=== PATIENT | female | born 1990 | race Caucasian/White ===

== ENCOUNTER 2017-04-29 15:16 | Emergency (ER) | payer OTHER ==
[~2017-04-29] VITALS: Ht 165.1 cm; Wt 140.2 kg
[~2017-04-29 15:16] MED LIST: ACETAZOLAMID250 MG OR; ACETTAB3 OR; AMOXICILLIN500 MG OR; BACTRIM DS1 TAB PO; CIPRO500 MG OR; FIORICET OR; FISH OIL1000 MG PO; KEPPRA XR500 MG OR; LORTAB 5 OR; NAPROSYN500 MG OR; NO CURRENT MEDS; NO HOME MEDS; PERCOCET 5/321 COMBO PO; PHENYTOIN EX100 MG; PHENYTOIN EX100 MG PO; PRENATA4 OR; PRENATA5 PO; PRENATAL1 TA1 PO; PROTONIX40 MG OR; TYLENOL # 31 TAB PO; TYLENOL ARTH650 MG OR; ULTRAM50 MG OR; ZOFRAN ODT4 MG PO
[2017-04-29] MEDS ORDERED: TORADOL PO (15:33)
[2017-04-29] MEDS ORDERED: AMOXICILLIN500 MG PO (15:33)
[2017-04-29 15:40] VITALS: BP 137/82
== END 2017-04-29 15:40 | disposition home or self-care (01) | DRG 159 ==
LOC: ED 15:16
DX: K04.7 Periapical abscess without sinus (principal); F17.210 Nicotine dependence, cigarettes, uncomplicated

== ENCOUNTER 2017-11-18 21:52 | Emergency (ER) | payer SELFPAY ==
[~2017-11-18] VITALS: Ht 165.1 cm; Wt 139.8 kg
[~2017-11-18 21:52] MED LIST changes: +AMOXICILLIN500 MG PO; +TORADOL PO; +XANAX0.5 MG PO
[2017-11-18 22:53] LABS: HEMATOCRIT 46.1 % (37.0-47.0); HEMOGLOBIN 15.7 g/dl (12.0-16.0); IMMATURE GRANULOCYTES 0.2 % (0.0-5.0); MEAN CELL VOLUME 95.1 fL CALC (80.0-100.0); MEAN CORPUSCULAR HGB 32.4 pG CALC (26.0-32.0); MEAN CORPUSCULAR HGB CONC 34.1 g/L CALC (32.0-36.0); NEUT# 7.55 thou/uL (2.00-7.15); RED BLOOD COUNT 4.85 mill/uL (4.20-5.60); RED CELL DISTRI WIDTH 12.5 % (11.5-15.5)
[2017-11-18 22:53] LABS: URINE BILIRUBIN - DIPSTICK NEGATIVE (NEGATIVE); URINE BLOOD DIPSTICK NEGATIVE (NEGATIVE); URINE COLOR YELLOW; URINE GLUCOSE - DIPSTICK NEGATIVE (NEGATIVE); URINE KETONE NEGATIVE (NEGATIVE); URINE LEUK ESTERASE NEGATIVE (NEGATIVE); URINE NITRITE - DIPSTICK NEGATIVE (Negative); URINE PROTEIN - DIPSTICK NEGATIVE (NEG-TRACE); URINE SPECIFIC GRAVITY >=1.030; URINE UROBILINOGEN - DIPSTICK 0.2 E.U./dL (0.2)
[2017-11-18 22:54] LABS: URINE CLARITY CLOUDY
[2017-11-18 23:04] LABS: ALBUMIN 4.5 g/dL (3.2-5.0); ALKALINE PHOSPHATASE 61 u/l (38-126); AMYLASE 43 u/l (30-110); ANION GAP 16 (6-22 (CALC)); BILIRUBIN, TOTAL 0.4 mg/dL (0.0-1.4); BUN 12 mg/dL (7-17); BUN/CREATININE RATIO 20 (12-20 (CALC)); CARBON DIOXIDE 25 mmol/l (22-30); CHLORIDE 103 mmol/l (95-108); CREATININE 0.6 mg/dL (0.5-1.0); GFR > 60 ML/MIN (>=60 (CALC)); GFR FOR AFR.AMER. > 60 ML/MIN (>=60 (CALC)); LIPASE 78 u/l (23-300); POTASSIUM 4.3 mmol/l (3.5-5.1); SODIUM 140 mmol/l (137-146); TOTAL PROTEIN 7.8 g/dL (6.3-8.2)
[2017-11-18 23:07] LABS: SGOT/AST 66 u/l (14-36)
[2017-11-18 23:08] LABS: URINE BACTERIA FEW hpf; URINE MUCUS MODERATE hpf (NONE-FEW); URINE RBC 0-2 RBC/hpf (0-5); URINE SQUAMOUS EPITHELIAL CELL MANY EPI/hpf (0-FEW); URINE WBC 0-2 WBC/hpf (0-5)
[2017-11-18] MEDS ORDERED: PROTONIX40 MG PO (23:32)
[2017-11-19 00:12] VITALS: BP 126/76
== END 2017-11-19 00:12 | disposition home or self-care (01) | DRG 392 ==
LOC: ED 21:52
PROVIDERS: Family Medicine
DX: K29.70 Gastritis, unspecified, without bleeding (principal); K59.00 Constipation, unspecified; J02.9 Acute pharyngitis, unspecified; F17.200 Nicotine dependence, unspecified, uncomplicated

== ENCOUNTER 2018-01-24 00:21 | Emergency (ER) | payer MEDICAID ==
[~2018-01-24] VITALS: Ht 165.1 cm; Wt 136.0 kg
[~2018-01-24 00:21] MED LIST changes: +PROTONIX40 MG PO
[2018-01-24] MEDS ORDERED: GENTAMICIN0.3 % OD (01:01)
[2018-01-24 01:12] VITALS: BP 127/62
== END 2018-01-24 01:12 | disposition home or self-care (01) ==
LOC: ED 00:21
DX: H10.31 Unspecified acute conjunctivitis, right eye (principal); H57.11 Ocular pain, right eye

== ENCOUNTER 2018-02-09 20:01 | Emergency (ER) | payer OTHER ==
[~2018-02-09] VITALS: Ht 165.1 cm; Wt 136.0 kg
[~2018-02-09 20:01] MED LIST changes: +GENTAMICIN0.3 % OD
[2018-02-09 22:05] VITALS: BP 110/68
== END 2018-02-09 22:05 | disposition home or self-care (01) ==
LOC: ED 20:01
DX: S93.602A Unspecified sprain of left foot, initial encounter (principal); X50.1XXA Overexertion from prolonged static or awkward postures, initial encounter; Y93.01 Activity, walking, marching and hiking; Y92.89 Other specified places as the place of occurrence of the external cause

== ENCOUNTER 2018-03-31 23:04 | Emergency (ER) | payer SELFPAY ==
[~2018-03-31] VITALS: Ht 165.1 cm; Wt 136.8 kg
[2018-04-01] MEDS ORDERED: IBUPROFEN600 MG PO (00:09)
[2018-04-01 00:20] VITALS: BP 130/78
== END 2018-04-01 00:30 | disposition home or self-care (01) | DRG 566 ==
LOC: ED 23:04
DX: M77.31 Calcaneal spur, right foot (principal); M72.2 Plantar fascial fibromatosis; F17.210 Nicotine dependence, cigarettes, uncomplicated

== ENCOUNTER 2018-04-15 23:56 | Emergency (ER) | payer SELFPAY ==
[~2018-04-15] VITALS: Ht 165.1 cm; Wt 136.0 kg
[~2018-04-15 23:56] MED LIST changes: +IBUPROFEN600 MG PO
[2018-04-16] MEDS ORDERED: LEVAQUIN750 MG PO (01:48)
[2018-04-16 02:01] VITALS: BP 124/73
== END 2018-04-16 02:09 | disposition home or self-care (01) | DRG 869 ==
LOC: ED 23:56
DX: B37.9 Candidiasis, unspecified (principal); F17.210 Nicotine dependence, cigarettes, uncomplicated

== ENCOUNTER 2018-04-20 22:53 | Emergency (ER) | payer SELFPAY ==
[~2018-04-20] VITALS: Ht 165.1 cm; Wt 136.0 kg
[~2018-04-20 22:53] MED LIST changes: +LEVAQUIN750 MG PO
[2018-04-21 00:25] VITALS: BP 110/62
== END 2018-04-21 00:25 | disposition home or self-care (01) | DRG 869 ==
LOC: ED 22:53
DX: B37.9 Candidiasis, unspecified (principal); F17.210 Nicotine dependence, cigarettes, uncomplicated

== ENCOUNTER 2018-04-24 23:49 | Emergency (ER) | payer SELFPAY ==
[~2018-04-24] VITALS: Ht 165.1 cm; Wt 136.0 kg
[2018-04-25 00:25] LABS: HEMATOCRIT 42.7 % (37.0-47.0); HEMOGLOBIN 14.4 g/dl (12.0-16.0); IMMATURE GRANULOCYTES 0.2 % (0.0-5.0); MEAN CELL VOLUME 93.2 fL CALC (80.0-100.0); MEAN CORPUSCULAR HGB 31.4 pG CALC (26.0-32.0); MEAN CORPUSCULAR HGB CONC 33.7 g/L CALC (32.0-36.0); NEUT# 8.23 thou/uL (2.00-7.15); RED BLOOD COUNT 4.58 mill/uL (4.20-5.60); RED CELL DISTRI WIDTH 12.7 % (11.5-15.5)
--- NOTE | 2018-04-25 00:55 | NUR ---
BREATHING TREATMENT GIVEN USING A MOUTH PEICE. BREATHING TECH. FOR GOOD DEPOSITION TO THE LUNGS.
[2018-04-25] MEDS ORDERED: DOXYCYCL HYC100 MG PO (01:44)
[2018-04-25] MEDS ORDERED: TESSALON PERLE100 MG PO (01:44)
[2018-04-25 02:02] VITALS: BP 132/72
== END 2018-04-25 02:02 | disposition home or self-care (01) | DRG 203 ==
LOC: ED 23:49
PROVIDERS: Family Medicine
DX: J20.9 Acute bronchitis, unspecified (principal); F17.200 Nicotine dependence, unspecified, uncomplicated

== ENCOUNTER 2018-06-10 16:15 | Emergency (ER) | payer OTHER ==
[~2018-06-10] VITALS: Ht 165.1 cm; Wt 136.4 kg
[~2018-06-10 16:15] MED LIST changes: +DOXYCYCL HYC100 MG PO; +TESSALON PERLE100 MG PO
[2018-06-10] MEDS ORDERED: CYCLOBENZAPRINE5 MG PO (16:42)
[2018-06-10] MEDS ORDERED: MOTRIN400 MG PO (16:42)
[2018-06-10 16:55] VITALS: BP 123/83
== END 2018-06-10 16:55 | disposition home or self-care (01) | DRG 552 ==
LOC: ED 16:15
DX: M62.830 Muscle spasm of back (principal); F17.210 Nicotine dependence, cigarettes, uncomplicated

== ENCOUNTER 2018-06-17 07:16 | Emergency (ER) | payer OTHER ==
[~2018-06-17] VITALS: Ht 165.1 cm; Wt 100.0 kg
[~2018-06-17 07:16] MED LIST changes: +CYCLOBENZAPRINE5 MG PO; +MOTRIN400 MG PO
[2018-06-17 08:08] LABS: HEMATOCRIT 37.6 % (37.0-47.0); HEMOGLOBIN 12.7 g/dl (12.0-16.0); IMMATURE GRANULOCYTES 0.3 % (0.0-5.0); MEAN CELL VOLUME 94.5 fL CALC (80.0-100.0); MEAN CORPUSCULAR HGB 31.9 pG CALC (26.0-32.0); MEAN CORPUSCULAR HGB CONC 33.8 g/L CALC (32.0-36.0); NEUT# 5.99 thou/uL (2.00-7.15); RED BLOOD COUNT 3.98 mill/uL (4.20-5.60); RED CELL DISTRI WIDTH 12.8 % (11.5-15.5)
[2018-06-17 08:28] LABS: ALBUMIN 3.6 g/dL (3.2-5.0); ALKALINE PHOSPHATASE 54 u/l (38-126); ANION GAP 10 (6-22 (CALC)); BILIRUBIN, TOTAL 0.4 mg/dL (0.0-1.4); BUN 12 mg/dL (7-17); BUN/CREATININE RATIO 19 (12-20 (CALC)); CARBON DIOXIDE 26 mmol/l (22-30); CHLORIDE 108 mmol/l (95-108); CREATININE 0.6 mg/dL (0.5-1.0); GFR > 60 ML/MIN (>=60 (CALC)); GFR FOR AFR.AMER. > 60 ML/MIN (>=60 (CALC)); POTASSIUM 4.5 mmol/l (3.5-5.1); SGOT/AST 23 u/l (14-36); SODIUM 139 mmol/l (137-146); TOTAL PROTEIN 6.3 g/dL (6.3-8.2)
[2018-06-17 10:01] LABS: URINE BILIRUBIN - DIPSTICK NEGATIVE (NEGATIVE); URINE BLOOD DIPSTICK LARGE (NEGATIVE); URINE COLOR YELLOW; URINE GLUCOSE - DIPSTICK NEGATIVE (NEGATIVE); URINE KETONE TRACE mg/dL (NEGATIVE); URINE LEUK ESTERASE NEGATIVE (NEGATIVE); URINE NITRITE - DIPSTICK NEGATIVE (Negative); URINE PROTEIN - DIPSTICK NEGATIVE (NEG-TRACE); URINE SPECIFIC GRAVITY 1.025; URINE UROBILINOGEN - DIPSTICK 0.2 E.U./dL (0.2)
[2018-06-17 10:06] LABS: BARBITURATES NEGATIVE (NEGATIVE); COCAINE NEGATIVE (NEGATIVE); METHADONE NEGATIVE (NEGATIVE); OXCYCODONE NEGATIVE (NEGATIVE); TETRAHYDROCANNABIONOL NEGATIVE (NEGATIVE); TRICYLIC ANTIDEPRESSANTS NEGATIVE (NEGATIVE)
[2018-06-17] MEDS ORDERED: BENTYL10 MG PO (10:34)
[2018-06-17] MEDS ORDERED: MIRALAX3350 N1 PO (10:34)
[2018-06-17 11:12] VITALS: BP 153/79
== END 2018-06-17 11:20 | disposition home or self-care (01) | DRG 392 ==
LOC: ED 07:16
PROVIDERS: Emergency Medicine
DX: K59.00 Constipation, unspecified (principal); R82.5 Elevated urine levels of drugs, medicaments and biological substances; F17.210 Nicotine dependence, cigarettes, uncomplicated

== ENCOUNTER 2018-10-11 14:55 | Emergency (ER) | payer BC ==
[~2018-10-11] VITALS: Ht 165.1 cm; Wt 135.4 kg
[~2018-10-11 14:55] MED LIST changes: +BENTYL10 MG PO; +MIRALAX3350 N1 PO
[2018-10-11] MEDS ORDERED: PROTONIX40 M2 PO (15:27)
[2018-10-11] MEDS ORDERED: LORTAB 5/3255 MG PO (15:27)
[2018-10-11] MEDS ORDERED: XANAX0.5 MG PO (15:27)
[2018-10-11] MEDS ORDERED: CREON24000 UNT PO (15:27)
[2018-10-11 16:26] LABS: URINE BILIRUBIN - DIPSTICK NEGATIVE (NEGATIVE); URINE BLOOD DIPSTICK MODERATE (NEGATIVE); URINE COLOR YELLOW; URINE GLUCOSE - DIPSTICK NEGATIVE (NEGATIVE); URINE KETONE NEGATIVE (NEGATIVE); URINE LEUK ESTERASE NEGATIVE (NEGATIVE); URINE NITRITE - DIPSTICK NEGATIVE (Negative); URINE PH 6.5 (4.5-8.0); URINE PROTEIN - DIPSTICK NEGATIVE (NEG-TRACE); URINE UROBILINOGEN - DIPSTICK 0.2 E.U./dL (0.2)
[2018-10-11 16:30] LABS: BARBITURATES NEGATIVE (NEGATIVE); COCAINE NEGATIVE (NEGATIVE); METHADONE NEGATIVE (NEGATIVE); OXCYCODONE POSITIVE (NEGATIVE); TETRAHYDROCANNABIONOL NEGATIVE (NEGATIVE); TRICYLIC ANTIDEPRESSANTS NEGATIVE (NEGATIVE)
[2018-10-11 16:32] LABS: URINE SQUAMOUS EPITHELIAL CELL FEW EPI/hpf (0-FEW); URINE WBC 0-2 WBC/hpf (0-5)
[2018-10-11] MEDS ORDERED: MEDDOSEPAK PO (17:31)
[2018-10-11] MEDS ORDERED: FLEXERIL PO (17:31)
[2018-10-11] MEDS ORDERED: DICLOFENAC50 MG PO (17:31)
[2018-10-11 17:38] VITALS: BP 112/65
== END 2018-10-11 18:09 | disposition home or self-care (01) | DRG 552 ==
LOC: ED 14:55
PROVIDERS: Emergency Medicine
DX: M51.9 Unspecified thoracic, thoracolumbar and lumbosacral intervertebral disc disorder (principal); K86.1 Other chronic pancreatitis; F17.200 Nicotine dependence, unspecified, uncomplicated

== ENCOUNTER 2018-10-25 18:24 | Emergency (ER) | payer BC ==
[~2018-10-25] VITALS: Ht 165.1 cm; Wt 131.0 kg
[~2018-10-25 18:24] MED LIST changes: +CREON24000 UNT PO; +DICLOFENAC50 MG PO; +FLEXERIL PO; +LORTAB 5/3255 MG PO; +MEDDOSEPAK PO; +PROTONIX40 M2 PO
[2018-10-25] MEDS ORDERED: CEPHALEXIN500 M1 PO (18:45)
[2018-10-25] MEDS ORDERED: BACTRIM DS1 TAB PO (18:45)
[2018-10-25 19:36] VITALS: BP 128/76
== END 2018-10-25 19:44 | disposition home or self-care (01) | DRG 581 ==
LOC: ED 18:24
PROC: 0U9M0ZZ Drainage of Vulva, Open Approach (ICD-10-PCS; principal; 2018-10-25)
DX: L02.215 Cutaneous abscess of perineum (principal); F17.210 Nicotine dependence, cigarettes, uncomplicated

== ENCOUNTER 2018-12-22 22:04 | Emergency (ER) | payer BC ==
[~2018-12-22] VITALS: Ht 165.1 cm; Wt 132.0 kg
[~2018-12-22 22:04] MED LIST changes: +CEPHALEXIN500 M1 PO
[2018-12-22] MEDS ORDERED: GABAPENTIN800 MG PO (22:21)
[2018-12-22] MEDS ORDERED: GUAIASORB DM1 ML PO (23:35)
[2018-12-22] MEDS ORDERED: VENTOLIN HF1 IN (23:35)
[2018-12-23 00:08] VITALS: BP 134/76
== END 2018-12-23 00:08 | disposition home or self-care (01) | DRG 203 ==
LOC: ED 22:04
DX: J40 Bronchitis, not specified as acute or chronic (principal)

== ENCOUNTER 2019-02-15 | Emergency (ER) | payer OTHER ==
[~2019-02-15] MED LIST changes: +GABAPENTIN800 MG PO; +GUAIASORB DM1 ML PO; +VENTOLIN HF1 IN
[2019-02-15 21:31] LABS: IMMATURE GRANULOCYTES 0.3 % (0.0-5.0); MEAN CELL VOLUME 93.2 fL CALC (80.0-100.0); MEAN CORPUSCULAR HGB 31.3 pG CALC (26.0-32.0); MEAN CORPUSCULAR HGB CONC 33.6 g/L CALC (32.0-36.0); NEUT# 10.2 thou/uL (2.00-7.15); RED BLOOD COUNT 4.85 mill/uL (4.20-5.60); RED CELL DISTRI WIDTH 13.2 % (11.5-15.5)
[2019-02-15 21:33] LABS: HEMATOCRIT 45.2 % (37.0-47.0); HEMOGLOBIN 15.2 g/dl (12.0-16.0)
[2019-02-15 21:42] LABS: ALKALINE PHOSPHATASE 52 u/l (38-126); BUN 11 mg/dL (7-17); BUN/CREATININE RATIO 22 (12-20 (CALC)); CARBON DIOXIDE 24 mmol/l (22-30); CHLORIDE 105 mmol/l (95-108); CREATININE 0.5 mg/dL (0.5-1.0); GFR > 60 ML/MIN (>=60 (CALC)); GFR FOR AFR.AMER. > 60 ML/MIN (>=60 (CALC)); LIPASE 104 u/l (23-300); SGOT/AST 40 u/l (14-36); SODIUM 139 mmol/l (137-146)
[2019-02-15 21:45] LABS: ALBUMIN 4.5 g/dL (3.2-5.0); ANION GAP 14 (6-22 (CALC)); BILIRUBIN, TOTAL 0.6 mg/dL (0.0-1.4); POTASSIUM 3.5 mmol/l (3.5-5.1)
[2019-02-15 23:14] LABS: URINE BILIRUBIN - DIPSTICK NEGATIVE (NEGATIVE); URINE BLOOD DIPSTICK NEGATIVE (NEGATIVE); URINE CLARITY CLEAR; URINE COLOR YELLOW; URINE GLUCOSE - DIPSTICK NEGATIVE (NEGATIVE); URINE KETONE NEGATIVE (NEGATIVE); URINE LEUK ESTERASE NEGATIVE (Negative); URINE NITRITE - DIPSTICK NEGATIVE (Negative); URINE PROTEIN - DIPSTICK NEGATIVE (NEG-TRACE); URINE UROBILINOGEN - DIPSTICK 0.2 E.U./dL (0.2)
[2019-02-15] MEDS ORDERED: HYDROCO/APAP1 TA9 PO (23:19)
== END 2019-02-15 23:44 | disposition home or self-care (01) | DRG 605 ==
DX: S30.811A Abrasion of abdominal wall, initial encounter (principal); F17.210 Nicotine dependence, cigarettes, uncomplicated; V43.53XA Car driver injured in collision with pick-up truck in traffic accident, initial encounter
CPT/HCPCS: Q9967

== ENCOUNTER 2019-03-22 | Emergency (ER) | payer MEDICAID ==
[~2019-03-22] MED LIST changes: +HYDROCO/APAP1 TA9 PO
[2019-03-22 21:32] LABS: IMMATURE GRANULOCYTES 0.3 % (0.0-5.0); MEAN CELL VOLUME 95.3 fL CALC (80.0-100.0); MEAN CORPUSCULAR HGB 31.6 pG CALC (26.0-32.0); MEAN CORPUSCULAR HGB CONC 33.2 g/L CALC (32.0-36.0); NEUT# 10.95 thou/uL (2.00-7.15); RED BLOOD COUNT 4.02 mill/uL (4.20-5.60); RED CELL DISTRI WIDTH 13.2 % (11.5-15.5)
[2019-03-22 21:33] LABS: HEMATOCRIT 38.3 % (37.0-47.0); HEMOGLOBIN 12.7 g/dl (12.0-16.0)
[2019-03-22] MEDS ORDERED: VENTOLIN HFA IN (22:26)
[2019-03-22] MEDS ORDERED: PREDNISONE50 MG PO (22:26)
[2019-03-22] MEDS ORDERED: CLARITHROMYC500 MG PO (22:26)
== END 2019-03-22 23:07 | disposition home or self-care (01) ==
PROVIDERS: Family Medicine
DX: J40 Bronchitis, not specified as acute or chronic (principal); F17.210 Nicotine dependence, cigarettes, uncomplicated

== ENCOUNTER 2019-05-07 | Emergency (ER) | payer MEDICAID ==
[~2019-05-07] MED LIST changes: +CLARITHROMYC500 MG PO; +PREDNISONE50 MG PO; +VENTOLIN HFA IN
[2019-05-07 09:34] LABS: HEMATOCRIT 40.5 % (37.0-47.0); HEMOGLOBIN 13.6 g/dl (12.0-16.0); IMMATURE GRANULOCYTES 0.3 % (0.0-5.0); MEAN CELL VOLUME 94.6 fL CALC (80.0-100.0); MEAN CORPUSCULAR HGB 31.8 pG CALC (26.0-32.0); MEAN CORPUSCULAR HGB CONC 33.6 g/dL CAL (32.0-36.0); NEUT# 5.86 thou/uL (2.00-7.15); RED BLOOD COUNT 4.28 mill/uL (4.20-5.60)
[2019-05-07 09:47] LABS: ALBUMIN 4.1 g/dL (3.2-5.0); ALKALINE PHOSPHATASE 50 u/l (38-126); ANION GAP 11 (6-22 (CALC)); BILIRUBIN, TOTAL 0.5 mg/dL (0.0-1.4); BUN 9 mg/dL (7-17); BUN/CREATININE RATIO 15 (12-20 (CALC)); CARBON DIOXIDE 24 mmol/l (22-30); CHLORIDE 108 mmol/l (95-108); CREATININE 0.6 mg/dL (0.5-1.0); GFR > 60 ML/MIN (>=60 (CALC)); GFR FOR AFR.AMER. > 60 ML/MIN (>=60 (CALC)); LIPASE 75 u/l (23-300); SGOT/AST 27 u/l (14-36); SODIUM 140 mmol/l (137-146); TOTAL PROTEIN 7.2 g/dL (6.3-8.2)
[2019-05-07 10:47] LABS: URINE BILIRUBIN - DIPSTICK NEGATIVE (NEGATIVE); URINE BLOOD DIPSTICK MODERATE (NEGATIVE); URINE COLOR YELLOW; URINE GLUCOSE - DIPSTICK NEGATIVE (NEGATIVE); URINE KETONE NEGATIVE (NEGATIVE); URINE LEUK ESTERASE NEGATIVE (NEGATIVE); URINE NITRITE - DIPSTICK NEGATIVE (Negative); URINE PROTEIN - DIPSTICK NEGATIVE (NEG-TRACE); URINE SPECIFIC GRAVITY >=1.030; URINE UROBILINOGEN - DIPSTICK 0.2 E.U./dL (0.2)
[2019-05-07 10:57] LABS: URINE CALCIUM OXALATE CRYSTALS MANY lpf; URINE SQUAMOUS EPITHELIAL CELL FEW EPI/hpf (0-FEW)
[2019-05-07] MEDS ORDERED: MOTRIN400 MG PO ×2 (11:06)
[2019-05-07] MEDS ORDERED: CHERATUSSIN PO (13:10)
[2019-05-07] MEDS ORDERED: ALBUTEROL SUL0.083 % IN (13:10)
== END 2019-05-07 13:22 | disposition home or self-care (01) ==
PROVIDERS: Family Medicine
DX: R10.12 Left upper quadrant pain (principal); R31.9 Hematuria, unspecified; R00.1 Bradycardia, unspecified; T40.2X5A Adverse effect of other opioids, initial encounter; R05 Cough; F17.200 Nicotine dependence, unspecified, uncomplicated

== ENCOUNTER 2019-08-09 23:40 | Emergency (ER) | payer MEDICAID ==
[~2019-08-09] VITALS: Ht 165.1 cm; Wt 122.0 kg
[~2019-08-09 23:40] MED LIST changes: +ALBUTEROL SUL0.083 % IN; +CHERATUSSIN PO
[2019-08-10 00:45] VITALS: BP 146/88
== END 2019-08-10 00:45 | disposition home or self-care (01) ==
LOC: ED 23:40
DX: S20.361A Insect bite (nonvenomous) of right front wall of thorax, initial encounter (principal); F17.210 Nicotine dependence, cigarettes, uncomplicated; W57.XXXA Bitten or stung by nonvenomous insect and other nonvenomous arthropods, initial encounter

== ENCOUNTER 2020-01-01 01:32 | Emergency (ER) | payer MEDICAID ==
[~2020-01-01] VITALS: Ht 165.1 cm; Wt 118.0 kg
[2020-01-01] MEDS ORDERED: STERAPRED DS10 MG PO (01:54)
[2020-01-01 02:42] VITALS: BP 134/59
== END 2020-01-01 02:42 | disposition home or self-care (01) ==
LOC: ED 01:32
DX: L25.9 Unspecified contact dermatitis, unspecified cause (principal); F17.200 Nicotine dependence, unspecified, uncomplicated

== ENCOUNTER 2020-04-29 19:47 | Emergency (ER) | payer MEDICAID ==
[~2020-04-29] VITALS: Ht 165.1 cm; Wt 113.0 kg
[~2020-04-29 19:47] MED LIST changes: +STERAPRED DS10 MG PO
[2020-04-29 20:44] LABS: HEMOGLOBIN 14.1 g/dl (12.0-16.0); IMMATURE GRANULOCYTES 0.3 % (0.0-5.0); MEAN CELL VOLUME 93.4 fL CALC (80.0-100.0); MEAN CORPUSCULAR HGB 32.1 pG CALC (26.0-32.0); MEAN CORPUSCULAR HGB CONC 34.4 g/dL CAL (32.0-36.0); NEUT# 10.6 thou/uL (2.00-7.15); RED BLOOD COUNT 4.39 mill/uL (4.20-5.60); RED CELL DISTRI WIDTH 11.9 % (11.5-15.5)
[2020-04-29 21:04] LABS: ALBUMIN 4.2 g/dL (3.2-5.0); ALKALINE PHOSPHATASE 48 u/l (38-126); AMYLASE 38 u/l (30-110); ANION GAP 15 (6-22 (CALC)); BILIRUBIN, TOTAL 0.6 mg/dL (0.0-1.4); BUN 10 mg/dL (7-17); BUN/CREATININE RATIO 16 (12-20 (CALC)); CARBON DIOXIDE 24 mmol/l (22-30); CHLORIDE 98 mmol/l (95-108); CREATININE 0.6 mg/dL (0.5-1.0); GFR > 60 ML/MIN (>=60 (CALC)); GFR FOR AFR.AMER. > 60 ML/MIN (>=60 (CALC)); LIPASE 37 u/l (23-300); POTASSIUM 4.7 mmol/l (3.5-5.1); SGOT/AST 24 u/l (14-36); SODIUM 132 mmol/l (137-146); TOTAL PROTEIN 7.4 g/dL (6.3-8.2)
[2020-04-29 21:14] LABS: MYOGLOBIN 20 ng/mL (0 - 62)
[2020-04-29 22:52] LABS: URINE BILIRUBIN - DIPSTICK NEGATIVE (NEGATIVE); URINE BLOOD DIPSTICK LARGE (NEGATIVE); URINE COLOR YELLOW; URINE GLUCOSE - DIPSTICK NEGATIVE (NEGATIVE); URINE KETONE NEGATIVE (NEGATIVE); URINE LEUK ESTERASE NEGATIVE (NEGATIVE); URINE PROTEIN - DIPSTICK NEGATIVE (NEG-TRACE); URINE SPECIFIC GRAVITY <=1.005; URINE UROBILINOGEN - DIPSTICK 0.2 E.U./dL (0.2)
[2020-04-29 22:57] LABS: URINE NITRITE - DIPSTICK NEGATIVE (Negative)
[2020-04-29 22:58] LABS: URINE SQUAMOUS EPITHELIAL CELL FEW EPI/hpf (0-FEW); URINE WBC 0-2 WBC/hpf (0-5)
[2020-04-29] MEDS ORDERED: NAPROXEN500 MG PO (23:08)
[2020-04-29 23:26] VITALS: BP 144/97
== END 2020-04-29 23:27 | disposition home or self-care (01) ==
LOC: ED 19:47
PROVIDERS: Emergency Medicine
DX: F31.9 Bipolar disorder, unspecified (principal); R07.89 Other chest pain; F19.10 Other psychoactive substance abuse, uncomplicated; F41.9 Anxiety disorder, unspecified; F17.200 Nicotine dependence, unspecified, uncomplicated; Z20.822 Contact with and (suspected) exposure to COVID-19

== ENCOUNTER 2020-06-19 19:23 | Emergency (ER) | payer MEDICAID ==
[~2020-06-19] VITALS: Ht 12.7 cm; Wt 111.4 kg
[~2020-06-19 19:23] MED LIST changes: +NAPROXEN500 MG PO
[2020-06-19 20:25] LABS: HEMOGLOBIN 14.6 g/dl (12.0-16.0); IMMATURE GRANULOCYTES 0.3 % (0.0-5.0); MEAN CELL VOLUME 95.5 fL CALC (80.0-100.0); MEAN CORPUSCULAR HGB CONC 32.4 g/dL CAL (32.0-36.0); NEUT# 8.64 thou/uL (2.00-7.15); RED BLOOD COUNT 4.71 mill/uL (4.20-5.60); RED CELL DISTRI WIDTH 13.2 % (11.5-15.5)
[2020-06-19] MEDS ORDERED: CREON1 CAP PO (20:34)
[2020-06-19 20:44] LABS: ALBUMIN 4.5 g/dL (3.2-5.0); ALKALINE PHOSPHATASE 51 u/l (38-126); AMYLASE 75 u/l (30-110); ANION GAP 10 (6-22 (CALC)); BILIRUBIN, TOTAL 0.5 mg/dL (0.0-1.4); BUN 14 mg/dL (7-17); BUN/CREATININE RATIO 20 (12-20 (CALC)); CARBON DIOXIDE 27 mmol/l (22-30); CHLORIDE 104 mmol/l (95-108); CREATININE 0.7 mg/dL (0.5-1.0); GFR > 60 ML/MIN (>=60 (CALC)); GFR FOR AFR.AMER. > 60 ML/MIN (>=60 (CALC)); LIPASE 76 u/l (23-300); POTASSIUM 4.2 mmol/l (3.5-5.1); SGOT/AST 17 u/l (14-36); SODIUM 137 mmol/l (137-146); TOTAL PROTEIN 8.2 g/dL (6.3-8.2)
[2020-06-19 21:36] LABS: URINE BILIRUBIN - DIPSTICK NEGATIVE (NEGATIVE); URINE BLOOD DIPSTICK NEGATIVE (NEGATIVE); URINE COLOR YELLOW; URINE GLUCOSE - DIPSTICK NEGATIVE (NEGATIVE); URINE KETONE NEGATIVE (NEGATIVE); URINE LEUK ESTERASE NEGATIVE (NEGATIVE); URINE PROTEIN - DIPSTICK NEGATIVE (NEG-TRACE); URINE SPECIFIC GRAVITY >=1.030; URINE UROBILINOGEN - DIPSTICK 0.2 E.U./dL (0.2)
[2020-06-19 21:38] LABS: URINE NITRITE - DIPSTICK NEGATIVE (Negative)
[2020-06-19] MEDS ORDERED: PROTONIX40 MG PO (21:49)
[2020-06-19] MEDS ORDERED: ZOFRAN4 MG/TAB PO (21:49)
[2020-06-19] MEDS ORDERED: ULTRAM50 MG PO (21:50)
[2020-06-19 21:57] VITALS: BP 121/84
[2020-10-15] MEDS ORDERED: LYRICA75 MG PO (09:33)
== END 2020-06-19 22:00 | disposition home or self-care (01) ==
LOC: ED 19:23
DX: K52.9 Noninfective gastroenteritis and colitis, unspecified (principal); F14.10 Cocaine abuse, uncomplicated; F31.9 Bipolar disorder, unspecified; F41.9 Anxiety disorder, unspecified; F17.200 Nicotine dependence, unspecified, uncomplicated
CPT/HCPCS: S0164

== ENCOUNTER 2020-09-12 11:54 | Emergency (ER) | payer MEDICAID ==
[~2020-09-12 11:54] MED LIST changes: +CREON1 CAP PO; +ULTRAM50 MG PO; +ZOFRAN4 MG/TAB PO
[2020-09-12 15:00] VITALS: BP 138/88
[2020-10-15] MEDS ORDERED: LYRICA75 MG PO (09:33)
== END 2020-09-12 15:25 | disposition home or self-care (01) ==
LOC: ED 11:54
DX: K86.1 Other chronic pancreatitis (principal); E28.2 Polycystic ovarian syndrome; F41.9 Anxiety disorder, unspecified; F31.9 Bipolar disorder, unspecified; F17.200 Nicotine dependence, unspecified, uncomplicated; Z20.822 Contact with and (suspected) exposure to COVID-19; R10.822 Left upper quadrant rebound abdominal tenderness
CPT/HCPCS: Q9967; S0164

== ENCOUNTER 2021-01-15 18:11 | Emergency (ER) | payer MEDICAID ==
[~2021-01-15] VITALS: Ht 165.1 cm; Wt 102.0 kg
[~2021-01-15 18:11] MED LIST changes: +LYRICA75 MG PO
[2021-01-15 19:20] LABS: HEMATOCRIT 41.8 % (37.0-47.0); HEMOGLOBIN 14.2 g/dl (12.0-16.0); IMMATURE GRANULOCYTES 0.1 % (0.0-5.0); MEAN CELL VOLUME 96.1 fL CALC (80.0-100.0); MEAN CORPUSCULAR HGB 32.6 pG CALC (26.0-32.0); NEUT# 6.47 thou/uL (2.00-7.15); RED BLOOD COUNT 4.35 mill/uL (4.20-5.60); RED CELL DISTRI WIDTH 12.9 % (11.5-15.5); URINE BILIRUBIN - DIPSTICK NEGATIVE (NEGATIVE); URINE BLOOD DIPSTICK NEGATIVE (NEGATIVE); URINE COLOR YELLOW; URINE GLUCOSE - DIPSTICK NEGATIVE (NEGATIVE); URINE KETONE NEGATIVE (NEGATIVE); URINE LEUK ESTERASE NEGATIVE (NEGATIVE); URINE PH 6.5 (4.5-8.0); URINE PROTEIN - DIPSTICK NEGATIVE (NEG-TRACE); URINE UROBILINOGEN - DIPSTICK 0.2 E.U./dL (0.2)
[2021-01-15 19:22] LABS: URINE NITRITE - DIPSTICK NEGATIVE (Negative)
[2021-01-15 19:40] LABS: ALBUMIN 4.1 g/dL (3.2-5.0); ALKALINE PHOSPHATASE 50 u/l (38-126); ANION GAP 8 (6-22 (CALC)); BILIRUBIN, TOTAL 0.5 mg/dL (0.0-1.4); BUN 10 mg/dL (7-17); BUN/CREATININE RATIO 14 (12-20 (CALC)); CHLORIDE 102 mmol/l (95-108); CREATININE 0.7 mg/dL (0.5-1.0); GFR > 60 ML/MIN (>=60 (CALC)); GFR FOR AFR.AMER. > 60 ML/MIN (>=60 (CALC)); LIPASE 41 u/l (23-300); SGOT/AST 17 u/l (14-36); SODIUM 137 mmol/l (137-146); TOTAL PROTEIN 7.6 g/dL (6.3-8.2)
[2021-01-15 19:42] LABS: CARBON DIOXIDE 31 mmol/l (22-30)
[2021-01-15] MEDS ORDERED: PREVACID30 M3 PO (21:08)
[2021-01-15] MEDS ORDERED: ONDANSETRON4 MG PO (21:08)
[2021-01-15] MEDS ORDERED: BUSPIRONE5 MG PO (21:09)
[2021-01-15] MEDS ORDERED: ULTRAM50 M1 PO (21:10)
[2021-01-15 21:56] VITALS: BP 118/67
== END 2021-01-15 21:56 | disposition home or self-care (01) ==
LOC: ED 18:11
PROVIDERS: Family Medicine
DX: K86.1 Other chronic pancreatitis (principal); F11.10 Opioid abuse, uncomplicated; F41.9 Anxiety disorder, unspecified; F31.9 Bipolar disorder, unspecified; F17.210 Nicotine dependence, cigarettes, uncomplicated
CPT/HCPCS: Q9967; S0164

== ENCOUNTER 2021-10-14 09:31 | Emergency (ER) | payer MEDICAID ==
[~2021-10-14] VITALS: Ht 165.1 cm; Wt 90.0 kg
[2021-10-14] VITALS (16 sets, daily range): BP systolic 121–152; BP diastolic 77–101
[~2021-10-14 09:31] MED LIST changes: +BUSPIRONE5 MG PO; +ONDANSETRON4 MG PO; +PREVACID30 M3 PO; +ULTRAM50 M1 PO
[2021-10-14 10:30] LABS: HEMATOCRIT 37.2 % (37.0-47.0); HEMOGLOBIN 12.7 g/dl (12.0-16.0); IMMATURE GRANULOCYTES 0.1 % (0.0-5.0); MEAN CELL VOLUME 94.9 fL CALC (80.0-100.0); MEAN CORPUSCULAR HGB 32.4 pG CALC (26.0-32.0); MEAN CORPUSCULAR HGB CONC 34.1 g/dL CAL (32.0-36.0); NEUT# 7.69 thou/uL (2.00-7.15); RED BLOOD COUNT 3.92 mill/uL (4.20-5.60); RED CELL DISTRI WIDTH 12.9 % (11.5-15.5)
[2021-10-14 11:14] LABS: ALBUMIN 4.4 g/dL (3.2-5.0); ALKALINE PHOSPHATASE 55 u/l (38-126); ANION GAP 12 (6-22 (CALC)); BILIRUBIN, TOTAL 0.3 mg/dL (0.0-1.4); BUN 10 mg/dL (7-17); BUN/CREATININE RATIO 15 (12-20 (CALC)); CARBON DIOXIDE 29 mmol/l (22-30); CHLORIDE 105 mmol/l (95-108); CREATININE 0.7 mg/dL (0.5-1.0); GFR FOR AFR.AMER. > 60 ML/MIN (>=60 (CALC)); GFR OTHER RACES > 60 ML/MIN (>=60 (CALC)); POTASSIUM 3.4 mmol/l (3.5-5.1); SGOT/AST 15 u/l (14-36); SODIUM 143 mmol/l (137-146); TOTAL PROTEIN 7.2 g/dL (6.3-8.2)
[2021-10-14] MEDS ORDERED: ISENTRESS400 MG PO (15:06)
[2021-10-14] MEDS ORDERED: COMBIVIR 1501 COMBO PO (15:06)
[2021-10-14 15:11] LABS: URINE BILIRUBIN - DIPSTICK NEGATIVE (NEGATIVE); URINE BLOOD DIPSTICK NEGATIVE (NEGATIVE); URINE COLOR YELLOW; URINE GLUCOSE - DIPSTICK NEGATIVE (NEGATIVE); URINE KETONE TRACE mg/dL (NEGATIVE); URINE LEUK ESTERASE TRACE (NEGATIVE); URINE PH 7.5 (4.5-8.0); URINE PROTEIN - DIPSTICK NEGATIVE (NEG-TRACE)
[2021-10-14] MEDS ORDERED: METRONIDAZOLE500 MG PO (15:11)
[2021-10-14 15:17] LABS: URINE NITRITE - DIPSTICK NEGATIVE (Negative)
== END 2021-10-14 15:53 | disposition home or self-care (01) ==
LOC: ED 09:31
PROVIDERS: Family Medicine
DX: N76.0 Acute vaginitis (principal); Z04.41 Encounter for examination and observation following alleged adult rape

== ENCOUNTER 2022-03-22 15:54 | Emergency (ER) | payer MEDICAID ==
[~2022-03-22] VITALS: Ht 165.1 cm; Wt 96.2 kg
[~2022-03-22 15:54] MED LIST changes: +COMBIVIR 1501 COMBO PO; +ISENTRESS400 MG PO; +METRONIDAZOLE500 MG PO
[2022-03-22] MEDS ORDERED: FLEXERIL5 M1 PO (18:25)
[2022-03-22] MEDS ORDERED: MOTRIN400 MG/TAB PO (18:25)
[2022-03-22 18:29] VITALS: BP 109/77
== END 2022-03-22 18:44 | disposition home or self-care (01) ==
LOC: ED 15:54
DX: M25.511 Pain in right shoulder (principal); F31.9 Bipolar disorder, unspecified; F41.9 Anxiety disorder, unspecified; F17.200 Nicotine dependence, unspecified, uncomplicated

== ENCOUNTER 2022-03-27 04:10 | Emergency (ER) | payer MEDICAID ==
[~2022-03-27] VITALS: Ht 165.1 cm; Wt 94.0 kg
[~2022-03-27 04:10] MED LIST changes: +FLEXERIL5 M1 PO; +MOTRIN400 MG/TAB PO
[2022-03-27 05:13] LABS: URINE BILIRUBIN - DIPSTICK NEGATIVE (NEGATIVE); URINE BLOOD DIPSTICK LARGE (NEGATIVE); URINE COLOR YELLOW; URINE GLUCOSE - DIPSTICK NEGATIVE (NEGATIVE); URINE KETONE NEGATIVE (NEGATIVE); URINE PH 5.5 (4.5-8.0); URINE PROTEIN - DIPSTICK NEGATIVE (NEG-TRACE); URINE SPECIFIC GRAVITY >=1.030; URINE UROBILINOGEN - DIPSTICK 0.2 E.U./dL (0.2)
[2022-03-27 05:22] LABS: URINE LEUK ESTERASE NEGATIVE (NEGATIVE); URINE NITRITE - DIPSTICK NEGATIVE (Negative)
[2022-03-27 05:23] LABS: URINE BACTERIA FEW hpf; URINE EPITHELIAL CELLS FEW EPI/hpf (0-FEW); URINE MUCUS MODERATE hpf (NONE-FEW); URINE RBC 25-50 RBC/hpf (0-5)
[2022-03-27] MEDS ORDERED: ULTRAM50 MG PO (07:00)
[2022-03-27 07:20] VITALS: BP 113/74
== END 2022-03-27 07:03 | disposition home or self-care (01) ==
LOC: ED 04:10
PROVIDERS: Emergency Medicine
DX: M25.511 Pain in right shoulder (principal); E04.1 Nontoxic single thyroid nodule; F19.10 Other psychoactive substance abuse, uncomplicated; F17.200 Nicotine dependence, unspecified, uncomplicated